=== PATIENT | female | born 1940 | race Caucasian/White ===

== ENCOUNTER → 2018-04-12 13:24 | Outpatient (CLI) | payer MEDICARE, OTHER, MEDICAID, SELFPAY ==
--- NOTE | 2018-04-12 13:29 | BI_ITS ---
MAMMOGRAPHY - BILATERAL DIAGNOSTIC REASON FOR EXAM: Female, 77 years old. Right breast lump. PERTINENT HISTORY: Personal history of breast cancer. Prior right lumpectomy with radiation and chemotherapy. Mother with breast cancer. TECHNIQUE: Digital bilateral breast neil (3D mammographic acquisition) in the CC and MLO projections. 2-D mediolateral oblique (MLO) and craniocaudad (CC) views of both breasts were obtained. CAD: Full Field Digital Mammography with Computer Added Detection was performed. COMPARISON: Comparison is made with prior outside examination dated June 13, 2016. FINDINGS: Breast Composition: The breasts are heterogeneously dense, which may obscure small masses. There are no dominant masses or suspicious calcifications. Stable bilateral vascular and microcalcifications. Postoperative scarring is seen in the upper lateral portion of the right breast in keeping with prior lumpectomy. No other significant abnormalities are identified. There has been no significant change since the prior study. BI/DIAG MAMM W/CAD, BILAT IMPRESSION: Stable bilateral diagnostic mammogram. With the patient's history of a palpable abnormality in the right breast, correlation with ultrasound is recommended ASSESSMENT CATEGORY: BIRADS Category 0: Incomplete. Need additional imaging evaluation. A letter regarding these results will be sent to the patient by the facility within 30 days. Approximately 10% of breast cancers are not detected by mammography. A normal mammogram should not delay biopsy of a clinically suspicious abnormality. Electronically Signed: Jluis Alas, at 15:33 EST , Service support ,
--- NOTE | 2018-04-12 13:29 | US_ITS ---
STUDY: ULTRASOUND BREAST - RIGHT REASON FOR EXAM: Female, 77 years old. Palpable lump in the right breast. Prior right lumpectomy. TECHNIQUE: Axial and longitudinal images of the RIGHT breast were performed with a high resolution ultrasound transducer. COMPARISON: Comparison is made with prior mammogram done earlier in today. FINDINGS: RIGHT Breast: There is a 5 mm x 7 mm x 3 mm hypoechoic nodular density. Tiny calcifications are seen within it. This lies just medial to the lumpectomy site. A biopsy is recommended for further evaluation. US/Breast Limited Unilateral IMPRESSION: Abnormality corresponds to a 5 mm x 7 mm x 3 mm hypoechoic slightly irregular nodule with tiny calcifications within it. This is medial to the lumpectomy site. A biopsy is recommended for further evaluation. ASSESSMENT CATEGORY: BIRADS Category 4: Suspicious - Biopsy Should Be Considered. A letter regarding these results will be sent to the patient by the facility within 30 days. Electronically Signed: Jluis Alas, at 15:35 EST , Service support ,
== END ==
PROVIDERS: Family Provider Family Medicine; PCP Family Medicine; Referring Provider Family Medicine; Visit Provider Family Medicine
DX: N63.10 Unspecified lump in the right breast, unspecified quadrant (principal); N63.20 Unspecified lump in the left breast, unspecified quadrant; Z85.3 Personal history of malignant neoplasm of breast
CPT/HCPCS: 76642; 77062; 77066; G0279

== ENCOUNTER → 2018-04-26 12:31 | Outpatient (CLI) | payer MEDICARE, OTHER, MEDICAID, SELFPAY ==
--- NOTE | 2018-04-26 09:00 | BRBX_PTH ---
PATIENT: ABIGAIL DE LA CRUZ LOC: [facility] U#:[id number] AGE/SX: 84/F ROOM: RE04/26/[address]: Dr. Eliel Cordova MD : 1940 BED: DIS: SPEC #: [id number] RECD: 04/26/18 12:24 STATUS: CLARENCE TONY #: [id number] CECILY: 04/26/18 09:[address]: Eliel Cordova DEPT: SURGICAL PATHOLOGY RECD BY: Uvaldo Myrick ENTERED: 04/26/18 13:33 SP TYPE: BREAST BX OTHR DR: Dr. Kt Michelle MD Tissues: Right breast, NOS Procedures: Surgery Specimen Level IV HEADER OPERATION: Excisional biopsy right breast PRE-OP DIAGNOSIS: Abnormal breast ultrasound, right TISSUE SUBMITTED: Right breast tissue MICROSCOPIC DIAGNOSIS Right breast tissue, excisional biopsy: Mature fatty and fibrovascular tissue. Skin with no pathologic change. See comment. AM:santa 04/30/18 COMMENT Glandular tissue is not represented in the biopsy. Clinical correlation is suggested. MICROSCOPIC DESCRIPTION Slides are reviewed. GROSS DESCRIPTION Received in fixative is one container labeled with the patient's name and designated right breast. The specimen consists of a piece of fibroadipose tissue measuring 3.5 x 3 x 0.5 cm. A piece of skin is noted at one edge measuring 1 x 0.6 cm. The specimen is inked, serially sectioned and reveals yellow adipose cut surfaces without area of hemorrhage, necrosis or cystic degeneration. The entire specimen is submitted in two cassettes. The sections will be submitted after overnight fixation. / SJ:santa 04/26/18 TC:5 CPT: 93798
[2018-04-26 09:41] VITALS: BMI 20.9
== END ==
PROVIDERS: Family Provider Family Medicine; PCP Family Medicine; Referring Provider Surgery; Visit Provider Surgery
DX: R92.8 Other abnormal and inconclusive findings on diagnostic imaging of breast (principal)
CPT/HCPCS: 88305

== ENCOUNTER → 2019-09-18 14:21 | Outpatient (CLI) | payer MEDICARE, MEDICAID, SELFPAY ==
[2018-04-26 09:41] VITALS: BMI 20.9
[2019-09-18 15:53] LABS: Protein, Urine (Random) 396.4 mg/dL (<11.9); Protein:Creat Ratio 6640 mg/g CRE (0-200)
== END ==
PROVIDERS: PCP Family Medicine; Referring Provider Internal Medicine Nephrology; Visit Provider Internal Medicine Nephrology
DX: E11.22 Type 2 diabetes mellitus with diabetic chronic kidney disease (principal)
CPT/HCPCS: 82570; 84156

== ENCOUNTER 2020-05-06 19:35 | Inpatient (IN) | payer MEDICARE, OTHER, MEDICAID, SELFPAY ==
[2018-04-26 09:41] VITALS: BMI 20.9
[2020-05-06] VITALS (8 sets, daily range): BP systolic 168–244; BP diastolic 66–99; PULSE 51–62; RESP 15–16; TEMP 36.1–36.3; O2SAT 94–97; BMI 22.8; BMI 21.0
--- NOTE | 2020-05-06 19:50 | EKG12_ITS ---
Test Reason : HIGH BP Blood Pressure : / mmHG Vent. Rate : 053 BPM Atrial Rate : 053 BPM P-R Int : 200 ms QRS Dur : 124 ms QT Int : 484 ms P-R-T Axes : 022 060 046 degrees QTc Int : 454 ms Sinus bradycardia Right bundle branch block Abnormal ECG Confirmed by MAHNAZ DARDEN, JOAN ([id number]), graphic editor MATILDA CISNEROS ([id number]) on 05/08/2020 12:47:07 PM Referred By: SUKHJINDER Confirmed By:JOAN JOYA MD
--- NOTE | 2020-05-06 19:50 | CT_ITS ---
EXAMINATION : Head CT w/out contrast HISTORY : Headache COMPARISON : None. TECHNIQUE : Multiple contiguous axial images were obtained from the skull base to the vertex without intravenous contrast. A radiation dose optimization technique was used for this scan. FINDINGS : There is no evidence for acute intracranial hemorrhage, mass effect, or midline shift. There is no extra-axial fluid collection. There are periventricular white matter changes consistent with chronic microvascular ischemic disease. There is sulcal widening and ventricular enlargement consistent with cerebral atrophy. There is normal vu-white differentiation, without CT evidence of acute ischemia or infarct. Old lacunar infarcts involving the left caudate, left lenticular nucleus. Vague 1.2 cm hypodense area in the right lenticular nucleus. The skull base and calvarium are unremarkable. The orbits are unremarkable. The paranasal sinuses are clear. The mastoid air cells are well-aerated. The soft tissues are unremarkable. CT/Brain/Head without Contrast IMPRESSION: Vague hypodense area in the right lenticular nucleus could represent an acute lacunar infarct. A brain MRI may be beneficial as clinically warranted. Old lacunar infarcts in the left caudate and lenticular nucleus. Chronic involutional and ischemic changes of the brain. Electronically Signed: Maxx Cantrell MD at 21:03 EDT Tel , Service support ,
[2020-05-06] MEDS: 0.9% Normal Saline 1,000 ML 1000 ML IV (19:59)
[2020-05-06] MEDS: Labetalol (Prefilled) 20 MG/4 ML IV (20:00)
[2020-05-06 20:02] LABS: Absolute Lymphocyte Count 1.85 X10^3/uL (0.83-4.51); Absolute Neutrophil Count 5.4 X10^3/uL (2.0-7.7); Basophil# 0.06 X10^3/uL; Basophil% 0.7 % (0-1); Eosinophil# 0.14 X10^3/uL; Eosinophils% 1.7 % (0-5); Hematocrit 40.6 % (37-47); Hemoglobin 13.6 g/dL (12.0-15.0); Lymphocyte # 1.85 X10^3/ul (4.0); Lymphocyte % 22.3 % (19-41); Mean Corp Hgb Conc 33.5 g/dL (32-36); Mean Corpuscular Hgb 31.6 pg (27.0-32.0); Mean Corpuscular Volume 94.4 fL (81-99); Mean Platelet Vol. 10.7 fl (6.2-12.0); Monocyte# 0.81 X10^3/uL; Monocyte% 9.7 % (0-10); NRBC Flagged by Analyzer 0 % (0-5); Neutrophil # 5.43 X10^3/uL (2.7-7.7); Neutrophil % 65.4 % (47-70); Platelet Count 274 K/mm3 (150-450); RBC Distribution Width CV 12.9 % (11.6-14.6); White Blood Count 8.3 K/mm3 (4.4-11.0)
--- NOTE | 2020-05-06 20:11 | ED.VISSUMM ---
- ER Visit Summary Date of Service: 05/06/20 Chief Complaint: Hypertension History of Present Illness: The patient is a 79 F who presents with hypertension that has been getting worse today. Patient fell earlier today after an episode of dizziness. Patient states she felt like there was a spinning sensation and she fell. Patient states the dizziness lasted a few minutes after she fell and then resolved. Patient denies any dizziness at the present time. Patient's blood pressure continued to increase throughout the day since the fall. Patient denies any chest pain. Patient does admit to some nausea and vomiting. Patient denies any headaches. Patient admits to subjective chills. Physical Examination: Vital signs are stable except for an elevated blood pressure of 244/85 and a slight bradycardia 57. Patient is afebrile. Patient is in no acute distress. Pupils are equal, round, and reactive to light bilaterally. Extraocular muscles are intact. Neck is supple. Trachea is midline. There is no JVD. Heart was regular rate and rhythm. Lungs are clear and equal bilaterally. Abdomen is soft. Bowel sounds are normal. There is no tenderness. Cranial nerves II through XII are intact. Strength is 5/5 bilateral in the upper and lower extremities. There are no sensory deficits. NIH score is 0. Extremities are intact. There is no calf tenderness or edema. There is full range of motion. Test Results: EKG was obtained. On my interpretation, it showed a sinus bradycardia with a rate of 53. MD interval, QRS interval, and QTc intervals were all normal. [place] was normal. There are no acute ST or T wave changes. There is a right bundle branch block pattern noted. There are no prior EKGs available for comparison. CBC and comprehensive metabolic profile were obtained and were within normal limits save for slightly elevated BUN of 33 and creatinine of 1.7. Patient does have a history of acute kidney injury. There are no prior values to compare with. Urinalysis does not show any evidence of urinary tract infection. CT scan of the brain was obtained. There is no acute bleed. There is a vague hypodense area in the right lenticular nucleus that could represent an acute lacunar infarct. MRI may be beneficial if clinically warranted. This was interpreted by the radiologist and reviewed by myself. Emergency Department Course and Treatment: Patient was given a dose of labetalol here. Patient's blood pressure improved to 207/107. Cardene drip was ordered. Patient's blood pressure improved to 174/85 prior to this being started. This was held. Case was discussed with the hospitalist. He will admit the patient to PCU. Patient understood and was agreeable with the plan. All questions were answered. Disposition: Admit to PCU Impression: 1. Hypertension 2. Lacunar infarct This note was generated with Video[employer] dictation software. It may contain incorrect words, spelling, and punctuation that were not noted in review of the chart prior to signing ED Disposition - Plan for ED Patient: Disposition: Acute Care Hospital [facility] Diagnosis: Hypertension, Lacunar infarct, acute Referrals: Kt Michelle MD [Primary Care Provider] -
[2020-05-06 20:25] LABS: ALB/GLOB Ratio 0.8 RATIO (0.9-2.4); AST(SGOT) 23 U/L (15-37); Alanine Aminotransfer ALT/SGPT 24 U/L (13-56); Albumin, Serum 3.2 g/dL (3.2-5.0); Alkaline Phosphatase 104 U/L (45-117); Anion Gap 5 (5-15); BUN 33 mg/dL (7-18); BUN/Creat Ratio 19.4 RATIO (10-20); Chloride 111 mmol/L (98-107); EST Glomerular Filtration Rate 31 mL/min (>60); Est Glom Filt Rate - Afr Amer 37 mL/min (>60); Estimated Creatinine Clearance 22.92 ml/min; Globulin 3.9 g/dL (2.2-4.2); Glucose 118 mg/dL (74-106); Potassium 3.9 mmol/L (3.5-5.1); Protein, Total 7.1 g/dL (6.4-8.2); Sodium Level 143 mmol/L (136-145)
[2020-05-06 21:01] LABS: Mucous, Urine 0 SEEN /hpf (<or=2+); Red Blood Cells-Urine 0 SEEN /hpf (0-5); Squamous Epithelial Cells - UA 0 SEEN /hpf (5-10)
[2020-05-06 21:05] LABS: Color, Urine Yellow (Yellow); Glucose, Dipstick Normal (Normal); Ketone-Dipstick Negative (Negative); Leukocyte Esterase-Dipstick Negative /ul (Negative); Nitrite-Dipstick Negative (Negative); Occult Blood-Urine 25 /ul (Negative); Protein-Dipstick 500 mg/dl (Negative); Urine Bilirubin Dipstick Negative (Negative); Urine Clarity Sl. Cloudy (Clear); Urine Urobilinogen Normal (Normal)
[2020-05-06 21:13] LABS: Amorphous Sediment 3+; Bacteria 2+ /hpf (None Seen); White Blood Cells 0-5 SEEN /hpf (0-5)
--- NOTE | 2020-05-06 22:30 | HP.PCM_ITS ---
<Katy Rojas - Last Filed: 05/06/20 22:30> Problem List (1) Lacunar infarct, acute Status: Acute (2) Fall Status: Acute Qualifiers: Encounter type: initial encounter Qualified Code(s): W19.XXXA - Unspecified fall, initial encounter (3) Vitamin D deficiency Status: Chronic (4) Diabetes mellitus type 2 in nonobese Status: Chronic (5) Depression Status: Chronic (6) Hypertension Status: Chronic (7) Dementia Status: Chronic History of Present Illness Date of Admission: 05/06/20 Chief Complaint: Fall The patient is a 79 year old F who presents from a prison following a fall. Patient is unable to remember events leading up to fall. Patient states she does think that she hit her head as she says it hurts. Upon presentation to the ER patient blood pressure 212/106. Patient was placed on Cardene drip in ER, current BP 174/85. Patient is alert and oriented, discussed plan of care with patient and she verbalized understanding. Denies fever, chills, chest pain, shortness of breath, nausea, vomiting. Patient reports a medical history of hypertension and diabetes. Patient denies previous stroke or heart attack, never patient states that she has had abnormal heart rhythms in the past but she is unsure what they were. Past Medical History Past Medical History (Chronic Problems): Chronic Problems (Last Reviewed 05/06/20 @ 22:43 by Katy Rojas, SETH-C) Hypertension (Chronic) Vitamin D deficiency (Chronic) Diabetes mellitus type 2 in nonobese (Chronic) Depression (Chronic) Dementia (Chronic) Medical History: Medical History (Last Reviewed 05/06/20 @ 22:43 by Katy Rojas NP-C) Breast mass, right (Acute) N63.10 History of falling (Acute) Z91.81 Altered mental status, unspecified (Acute) R41.82 Disorientation, unspecified (Acute) R41.0 Acute cystitis with hematuria (Acute) N30.01 Acute kidney failure (Acute) N17.9 Major depressive disorder (Acute) F32.9 Protein calorie malnutrition (Acute) E46 Dementia (Chronic) F03.90 Hx of breast cancer (Acute) Z85.3 Right breast Diabetes type 2, controlled E11.9 Weakness R53.1 Hypertension I10 Allergies loratadine [From Claritin] Allergy (Unknown, Verified 05/01/18 09:27) Unknown Home Medications: Ambulatory Orders Medication Instructions Recorded acetaminophen 325 mg capsule 325 mg PO Q6H PRN 04/17/18 acetaminophen 650 mg rectal 650 mg RC Q6H PRN 04/17/18 suppository aluminum-mag hydroxide-simethicone 10 ml PO Q6H PRN 04/17/18 200 mg-200 mg-20 mg/5 mL oral susp amlodipine 10 mg tablet 10 mg PO DAILY 04/17/18 bisacodyl 10 mg rectal suppository 10 mg RC DAILY PRN 04/17/18 dextrose 40 % oral gel 15 g PO Q15M PRN 04/17/18 donepezil 10 mg tablet 10 mg PO DAILY 04/17/18 guaifenesin 100 mg/5 mL oral liquid 200 mg PO Q4H PRN 04/17/18 ondansetron 4 mg disintegrating 4 mg PO BID-TID PRN 04/17/18 tablet venlafaxine 37.5 mg 37.5 mg PO DAILY 04/17/18 capsule,extended release 24 hr Carvedilol 6.25 mg PO BID 05/06/20 Cholecalciferol (Vitamin D3) 2 tablet PO DAILY 05/06/20 [Vitamin D3] Ferrous Sulfate 325 mg PO DAILY 05/06/20 Melatonin 5 mg PO QHS 05/06/20 Sitagliptin Phosphate [Januvia] 25 mg PO DAILY 05/06/20 Surgical History: Surgical History (Last Reviewed 05/06/20 @ 22:43 by Katy Rojas NP-C) History of lumpectomy of right breast (Acute) Z98.890 History of right breast biopsy Onset Date: ~04/2018 Z98.890 Surgical History: noncontributory Psychiatric History: Depression Lives: Custodial Smoking Status: Never smoker Alcohol: None Drugs: None - *Family History Maternal Family History: Family History (Last Reviewed 04/26/18 @ 09:11 by Ngozi Gillette) Mother Breast cancer History Items: Diabetes Paternal Family History: Family History (Last Reviewed 04/26/18 @ 09:11 by Ngozi Gillette) Mother Breast cancer History Items: Hypertension Review of Systems Constitutional: Denies: Chills, Fever, Weight Change HEENT: Denies: Head Aches, Sinus Congestion, Sinus Drainage Cardiovascular: Denies: Chest Pain, Palpitations Respiratory: Denies: Cough, Shortness of breath at rest, Sputum production Gastrointestinal: Denies: Abdominal Pain, Nausea, Vomiting Genitourinary: Denies: Dysuria Musculoskeletal: Denies: Joint Pain, Joint Tenderness Skin: Denies: Rash, Wounds Neurological: Reports: Headaches - Following fall. Denies: Focal weakness, N umbness, Tingling Psychiatric: Denies: Anxiety, Depression, Homicidal Ideations, Suicidal Ideations Hematologic/ Lymphatic: Denies: Easy Bruising, Easy Bleeding VTE Information - Inpt Only VTE Present on Admission: No VTE Mechan Device Prophylaxis: SCD's, None VTE Pharm Prophylaxis ordered?: No Patient Problems: Active and Suspected Problems (Last Reviewed 05/06/20 @ 22:43 by MING Pompa) Lacunar infarct, acute (Acute) Fall (Acute) - Physical Exam Vitals/I&O's: Vital Signs Temp Pulse Resp BP Pulse Ox 97.3 F L 54 L 16 214/82 H 94 05/06/20 22:26 05/06/20 22:26 05/06/20 22:26 05/06/20 22:26 05/06/20 22:26 Oxygen Delivery Method Room Air Weight: 128 lb 15.527 oz Body Mass Index (BMI) 22.8 Intake and Output for Last 24 Hours 05/04/20 05/05/20 05/06/20 23:59 23:59 23:59 Intake Total 1000 / 1000 Balance 1000 / 1000 General: Alert, Oriented x3, Cooperative HEENT: Atraumatic, PERRLA, EOMI, Normocephalic Neck: Supple, No JVD, Negative Carotid Bruits Lungs: Clear to auscultation, Normal air movement Cardiovascular: Regular Rhythm, Normal S1, Normal S2, No murmurs, Bradycardic Abdomen: Bowel Sounds Present, Soft, Non Tender Extremities: No edema, Capillary Refill Less than 3 Seconds Skin: No rashes, No breakdown Musculoskeletal: No Tenderness to Palpation of Joints or Extremities Neurological: Cranial nerves II-XII grossly intact Psych/Mental Status: Normal Affect, Appropriate Laboratory Results 05/06/20 19:08: WBC 8.3, RBC 4.30, Hgb 13.6, Hct 40.6, MCV 94.4, MCH 31.6, MCHC 33.5, RDW Std Deviation 44.0 H, RDW Coeff of Luis Miguel 12.9, Plt Count 274, MPV 10.7, Immature Gran % (Auto) 0.200, Neut % (Auto) 65.4, Lymph % (Auto) 22.3, [place] % (Auto) 9.7, Eos % (Auto) 1.7, Baso % (Auto) 0.7, Absolute Neuts (auto) 5.4, Absolute Lymphs (auto) 1.85, Nucleated RBC % 0 05/06/20 19:08: Sodium 143, Potassium 3.9, Chloride 111 H, Carbon Dioxide 27.0, Anion Gap 5, BUN 33 H, Creatinine 1.70 H, Estim Creat Clear Calc 22.92, Est GFR (MDRD) Af Amer 37 L, Est GFR (MDRD) Non-Af 31 L, BUN/Creatinine Ratio 19.4, Glucose 118 H, Calcium 9.0, Total Bilirubin 0.40, AST 23, ALT 24, Alkaline Phosphatase 104, Troponin I < 0.015, Total Protein 7.1, Albumin 3.2, Globulin 3.9, Albumin/Globulin Ratio 0.8 L 05/06/20 20:50: Urine Color Yellow, Urine Clarity Sl. Cloudy, Urine pH 5.0, Ur Specific [place] 1.020, Urine Protein 500 H, Urine Glucose (UA) Normal, Urine Ketones Negative, Urine Occult Blood 25 H, Urine Nitrite Negative, Urine Bilirubin Negative, Urine Urobilinogen Normal, Ur Leukocyte Esterase Negative, Urine RBC 0 SEEN, Urine WBC 0-5 SEEN, Ur Squamous Epith Cells 0 SEEN, Amorphous Sediment 3+, Urine Bacteria 2+, Urine Mucus 0 SEEN Current Medications Nicardipine HCl 25 mg/ Sodium (Chloride) 250 mls @ 50 mls/hr CONT INF .Q5H YEE; Protocol Last Admin: 05/06/20 22:22 Dose: 5 mg/hr, 50 mls/hr Documented by: Assessment/Plan All Active Problems (Last Reviewed 05/06/20 @ 22:43 by Katy Rojas, DATA PROCESSING EQUIPMENT REPAIRER-C) Lacunar infarct, acute (Acute) Fall (Acute) Breast mass, right (Acute) History of lumpectomy of right breast (Acute) History of falling (Acute) Altered mental status, unspecified (Acute) Disorientation, unspecified (Acute) Acute cystitis with hematuria (Acute) Acute kidney failure (Acute) Major depressive disorder (Acute) Protein calorie malnutrition (Acute) Hx of breast cancer (Acute) 1. Acute lacunar infarct, suspected -Brain CT IMPRESSION:Vague hypodense area in the right lenticular nucleus could represent an acute lacunar infarct. A brain MRI may be beneficial as clinically warranted. -Will proceed with stroke work-up, MRI brain and head/neck MRA ordered. -Continue NIH. -Will allow permissive hypertension, IV hydralazine and labetalol ordered with blood pressure parameters. -Aspirin and atorvastatin initiated. -Continuous cardiac monitoring. 2. Fall -Brain CT negative for bleed. -Continue to monitor for mental status changes. 3. Hypertension -Will allow permissive hypertension for first 24 hours per stroke protocol. -As needed hydralazine and labetalol ordered. -Continue home medications including carvedilol and amlodipine. 4. Dementia -Continue donepezil. 5. Depression -Continue venlafaxine. 6. Diabetes mellitus type 2 -Hold Januvia while inpatient. -AC at bedtime blood sugar checks with sliding scale insulin ordered 7. Vitamin D deficiency -Continue vitamin D3 -Vitamin D level ordered. DVT prophylaxis-SCDs This patient was seen by MING Pompa under the supervision of Dr. Pozo. <David Pozo - Last Filed: 05/06/20 23:30> History of Present Illness The patient is a 79 year old F [] Past Medical History Medical History: Medical History (Last Reviewed 05/06/20 @ 22:43 by MING Pompa) Breast mass, right (Acute) N63.10 History of falling (Acute) Z91.81 Altered mental status, unspecified (Acute) R41.82 Disorientation, unspecified (Acute) R41.0 Acute cystitis with hematuria (Acute) N30.01 Acute kidney failure (Acute) N17.9 Major depressive disorder (Acute) F32.9 Protein calorie malnutrition (Acute) E46 Dementia (Chronic) F03.90 Hx of breast cancer (Acute) Z85.3 Right breast Diabetes type 2, controlled E11.9 Weakness R53.1 Hypertension I10 Allergies loratadine [From Claritin] Allergy (Unknown, Verified 05/01/18 09:27) Unknown Surgical History: Surgical History (Last Reviewed 05/06/20 @ 22:43 by Katy Rojas NP-C) History of lumpectomy of right breast (Acute) Z98.890 History of right breast biopsy Onset Date: ~04/2018 Z98.890 - *Family History Maternal Family History: Family History (Last Reviewed 04/26/18 @ 09:11 by Ngozi Gillette) Mother Breast cancer Paternal Family History: Family History (Last Reviewed 04/26/18 @ 09:11 by Ngozi Gillette) Mother Breast cancer - Physical Exam Vitals/I&O's: Vital Signs Temp Pulse Resp BP Pulse Ox 97.3 F L 62 16 168/66 H 94 05/06/20 22:26 05/06/20 22:38 05/06/20 22:26 05/06/20 22:42 05/06/20 22:26 Oxygen Delivery Method Room Air Weight: 58.5 kg Body Mass Index (BMI) 22.8 Intake and Output for Last 24 Hours 05/04/20 05/05/20 05/06/20 23:59 23:59 23:59 Intake Total 1013.33 / 1013.33 Balance 1013.33 / 1013.33 Laboratory Results 05/06/20 19:08: WBC 8.3, RBC 4.30, Hgb 13.6, Hct 40.6, MCV 94.4, MCH 31.6, MCHC 33.5, RDW Std Deviation 44.0 H, RDW Coeff of [place] 12.9, Plt Count 274, MPV 10.7, Immature Gran % (Auto) 0.200, Neut % (Auto) 65.4, Lymph % (Auto) 22.3, [place] % (Auto) 9.7, Eos % (Auto) 1.7, Baso % (Auto) 0.7, Absolute Neuts (auto) 5.4, Absolute Lymphs (auto) 1.85, Nucleated RBC % 0 05/06/20 19:08: Sodium 143, Potassium 3.9, Chloride 111 H, Carbon Dioxide 27.0, Anion Gap 5, BUN 33 H, Creatinine 1.70 H, Estim Creat Clear Calc 22.92, Est GFR (MDRD) Af Amer 37 L, Est GFR (MDRD) Non-Af 31 L, BUN/Creatinine Ratio 19.4, Glucose 118 H, Calcium 9.0, Total Bilirubin 0.40, AST 23, ALT 24, Alkaline Phosphatase 104, Troponin I < 0.015, Total Protein 7.1, Albumin 3.2, Globulin 3. 9, Albumin/Globulin Ratio 0.8 L 05/06/20 20:50: Urine Color Yellow, Urine Clarity Sl. Cloudy, Urine pH 5.0, Ur Specific [place] 1.020, Urine Protein 500 H, Urine Glucose (UA) Normal, Urine Ketones Negative, Urine Occult Blood 25 H, Urine Nitrite Negative, Urine Bilirubin Negative, Urine Urobilinogen Normal, Ur Leukocyte Esterase Negative, Urine RBC 0 SEEN, Urine WBC 0-5 SEEN, Ur Squamous Epith Cells 0 SEEN, Amorphous Sediment 3+, Urine Bacteria 2+, Urine Mucus 0 SEEN Current Medications Acetaminophen (Acetaminophen 325 Mg Tablet) 650 mg PO Q6H PRN PRN PRN Reason: Pain Score 1-10/Temp > 100.7 F Amlodipine Besylate (Amlodipine 10 Mg Tablet) 10 mg PO DAILY [facility] Aspirin (Aspirin 81 Mg Tab.Chew) 81 mg PO DAILY@0800 [facility] Atorvastatin Calcium (Atorvastatin Calcium 40 Mg Tablet) 40 mg PO QHS [facility] Carvedilol (Carvedilol 6.25 Mg Tablet) 6.25 mg PO BID [facility] Donepezil HCl (Donepezil Hcl 10 Mg Tablet) 10 mg PO DAILY [facility] Ferrous Sulfate ([facility]errous Sulfate 325 Mg Tablet) [facility] Hydralazine HCl (Hydralazine 20 Mg/Ml Vial) 5 mg IV Q30M PRN PRN Reason: to maintain BP goals Insulin Human Lispro (Insulin Lispro 100 Unit/Ml Insuln.Pen) 0 unit SC [facility]; Protocol Labetalol HCl (Labetalol (Prefilled) 20 Mg/4 Ml) 10 - 20 mg IV Q10M PRN PRN PRN Reason: to Maintain BP Goals Melatonin (Melatonin 3 Mg Tablet) 3 mg PO QHS PRN PRN PRN Reason: INSOMNIA Nitroglycerin (Nitroglycerin (Inpatient Use) 0.4 Mg Tab.Subl) 0.4 mg SL Q5M PRN PRN Reason: CARDIAC/CHEST PAIN Ondansetron HCl (Ondansetron 4 Mg/2 Ml Vial) 4 mg IV Q8H PRN PRN PRN Reason: NAUSEA/VOMITING Venlafaxine HCl (Venlafaxine Xr 37.5 Mg Capsule) 37.5 mg PO DAILY YEE Assessment/Plan Patient was seen and examined. I agree with assessment and plan by Katy Driver NP-C Patient lives in a prison. She fell. She does not remember why she fell. Patient alert and oriented x3. Has an S1-S2 present lungs clear to auscultate Abdomen soft nontender bowel sounds present Extremities no edema Strength in all extremities 5 out of 5. No dysmetria. Cranial nerves II to XII intact Hypertensive emergency. Will allow permissive hypertension per stroke protocol Trend blood pressures. Acute lacunar infarct Stroke work-up with MRI and echocardiogram. Asymptomatic bacteriuria Review of emergency department labs showed abnormal urinalysis. Patient denies any urinary symptoms. No treatment at this time.
--- NOTE | 2020-05-06 23:30 | ECHOD_ITS ---
Reason For Study: TIA/CVA Procedure This was a 2D Doppler, Color Flow transthoracic echocardiogram. The exam was of adequate technical quality. Exam performed portable in patient room. Left Ventricle Normal LV size. Moderate concentric left ventricular hypertrophy. Left ventricular systolic function is normal. The estimated ejection fraction is 65 %. No evidence for diastolic dysfunction. No regional wall motion abnormalities noted. Right Ventricle Normal RV size. Normal systolic function. Atria Normal left atrium. Normal right atrium. No doppler evidence for ASD. Bubble contrast study negative for right to left interatrial shunt. Mitral Valve There is no mitral annular calcification. Mild diffuse mitral valve thickening. Moderate focal mitral valve calcification of the anterior leaflet. The mitral papillary muscle appears thickened and/or calcified. Trivial mitral valve insufficiency. Tricuspid Valve Normal tricuspid valve. Trivial tricuspid valve insufficiency. Unable to estimate RV systolic pressure due to insufficient tricuspid regurgitant envelope. Aortic Valve Trisinus/trileaflet aortic valve. Mild focal aortic valve calcification. Trivial aortic valve insufficiency. Pulmonic Valve The pulmonic valve is not well visualized. Trivial pulmonic valve insufficiency. Great Vessels Normal sized aortic root. Calcified aortic root. Pericardium/Pleural No pericardial effusion. Epicardial fat. Medication Performed a rapid injection of agitated mix of 9 cc saline and 1cc air to assess for atrial septal defect. MMode/2D Measurements & Calculations LVIDd: 2.9 cm IVSd: 1.4 cm Ao root diam: 3.0 cm LVIDs: 1.6 cm LVPWd: 1.4 cm RVDd: 2.4 cm FS: 44.4 % LAV(MOD-bp): 24.6 ml LA A4 area: 11.4 cm2 LA dimension(2D): 2.7 cm LAV(MOD-bp) Indexed: 15.7 ml/m2 LAV(MOD-sp2): 19.9 ml LAV(MOD-sp4): 27.8 ml RA A4 area: 8.2 cm2 Doppler Measurements & Calculations MV E max michael: 37.4 cm/sec Lat Peak E' Michael: 7.7 cm/sec Med Peak E' Michael: 5.7 cm/sec MV A max michael: 87.2 cm/sec E/E' lat: 4.9 E/E' med: 6.6 MV E/A: 0.43 Ao V2 max: 106.7 cm/sec LV V1 max: 79.2 cm/sec PA V2 max: 126.0 cm/sec Ao max P.6 mmHg LV V1 max P.5 mmHg ECHO/Echo Complete Interpretation Summary Left ventricular systolic function is normal. The estimated ejection fraction is 65 %. Moderate concentric left ventricular hypertrophy. Mild diffuse mitral valve thickening. Moderate focal mitral valve calcification of the anterior leaflet. The mitral papillary muscle appears thickened and/or calcified. Trivial mitral valve insufficiency. Trivial tricuspid valve insufficiency. Mild focal aortic valve calcification. Trivial pulmonic valve insufficiency. Calcified aortic root. Epicardial fat. Unable to estimate RV systolic pressure due to insufficient tricuspid regurgita nt envelope. No evidence for diastolic dysfunction. Bubble contrast study negative for right to left interatrial shunt. Ordering Physician: David Pozo Referring Physician: Kt Michelle Performed By: Lynette Nichole RDCS
[2020-05-07] VITALS (16 sets, daily range): BP systolic 159–207; BP diastolic 51–99; PULSE 49–69; RESP 16–19; TEMP 36.2–36.8; O2SAT 94–100; BMI 21.0
[2020-05-07 05:50] LABS: ALB/GLOB Ratio 0.8 RATIO (0.9-2.4); AST(SGOT) 23 U/L (15-37); Alanine Aminotransfer ALT/SGPT 19 U/L (13-56); Albumin, Serum 2.6 g/dL (3.2-5.0); Alkaline Phosphatase 84 U/L (45-117); Anion Gap 6 (5-15); BUN 30 mg/dL (7-18); Calcium,Total 8.4 mg/dL (8.5-10.1); Chloride 113 mmol/L (98-107); Cholesterol 286 mg/dL (200); EST Glomerular Filtration Rate 36 mL/min (>60); Est Glom Filt Rate - Afr Amer 43 mL/min (>60); Estimated Creatinine Clearance 27.12 ml/min; Globulin 3.2 g/dL (2.2-4.2); Glucose 85 mg/dL (74-106); High Density Lipoprotein 41 mg/dL; Potassium 3.5 mmol/L (3.5-5.1); Protein, Total 5.8 g/dL (6.4-8.2); Sodium Level 143 mmol/L (136-145); Triglycerides 199 mg/dL; Very Low Density Lipoprotein 40 mg/dL (5-40)
--- NOTE | 2020-05-07 06:28 | NURSING ---
Unable to completely perform 0400 NIH assessment d/t pt wanting to sleep and refusing to cooperative with staff. JULISSA Fuller.
[2020-05-07 07:01] LABS: Bedside Glucose 86 mg/dL (70-110)
--- NOTE | 2020-05-07 08:18 | NURSING ---
Into room to preform NIH and obtain VS. Pt resting in bed on left side with blankets pulled above head. ECHO at bedside setting up. This RN gently spoke to pt to inform her of POC. PT then started screaming at staff that she wasn't doing anything not this early. Pt continued to scream at staff. This RN was able to calm pt and obtain VS. Pt refused to preform NIH and allow assessment to be done. RN left room with pt resting in bed, bed alarm on and call light in reach.
[2020-05-07] MEDS: Venlafaxine XR 37.5 MG Capsule PO (10:24)
[2020-05-07] MEDS: Donepezil HCl 10 MG Tablet PO (10:24)
[2020-05-07] MEDS: Aspirin 81 MG TAB.CHEW PO (10:24)
[2020-05-07] MEDS: Ferrous Sulfate 325 MG Tablet PO (10:24)
[2020-05-07] MEDS: Carvedilol 6.25 MG Tablet PO (10:37)
[2020-05-07] MEDS: amLODIPine 10 MG Tablet PO (10:37)
--- NOTE | 2020-05-07 10:39 | CASEMGMT ---
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 Clinical updates faxed. SW will continue to follow for discharge planning. KEIRA Morales
[2020-05-07 11:10] LABS: Bedside Glucose 147 mg/dL (70-110)
--- NOTE | 2020-05-07 11:46 | PN_ITS ---
Patient Problems: Active and Suspected Problems (Last Reviewed 05/06/20 @ 22:43 by Katy Rojas, [employer]-C) Lacunar infarct, acute (Acute) Fall (Acute) Subjective: change in mental status Vitals/I&O's: Vital Signs Temp Pulse Resp BP Pulse Ox 36.8 C 67 19 H 207/85 H 96 05/07/20 08:15 05/07/20 10:27 05/07/20 08:15 05/07/20 10:05/07/20 08:15 Oxygen Delivery Method Room Air Weight: 55.6 kg Body Mass Index (BMI) 21.0 Intake and Output for Last 24 Hours 05/05/20 05/06/20 05/07/20 23:59 23:59 23:59 Intake Total 1013.33 / 1043.33 Output Total 0 / 0 Balance 1013.33 / 1043.33 General: No apparent distress, Confused, - - diffuse allopecia HEENT: Atraumatic, Normocephalic Oral: Moist Mucosa, No Gingival or Mucosal Lesions/ Ulcerations Neck: No Nodes, Thyroid Normal Size and Texture Lungs: Clear to auscultation, Normal air movement, No rhonchi, No wheeze Cardiovascular: Regular rate, Regular Rhythm, Normal S1, Normal S2 Abdomen: Bowel Sounds Present, Soft, Non Tender, Non-Distended Neurological: - - refuses to follow commands. moves all extremities spontaneusly. Laboratory Results 05/06/20 19:08: WBC 8.3, RBC 4.30, Hgb 13.6, Hct 40.6, MCV 94.4, MCH 31.6, MCHC 33.5, RDW Std Deviation 44.0 H, RDW Coeff of Luis Miguel 12.9, Plt Count 274, MPV 10.7, Immature Gran % (Auto) 0.200, Neut % (Auto) 65.4, Lymph % (Auto) 22.3, [place] % (Auto) 9.7, Eos % (Auto) 1.7, Baso % (Auto) 0.7, Absolute Neuts (auto) 5.4, Absolute Lymphs (auto) 1.85, Nucleated RBC % 0 05/06/20 19:08: Sodium 143, Potassium 3.9, Chloride 111 H, Carbon Dioxide 27.0, Anion Gap 5, BUN 33 H, Creatinine 1.70 H, Estim Creat Clear Calc 22.92, Est GFR (MDRD) Af Amer 37 L, Est GFR (MDRD) Non-Af 31 L, BUN/Creatinine Ratio 19.4, Glucose 118 H, Calcium 9.0, Total Bilirubin 0.40, AST 23, ALT 24, Alkaline Phosphatase 104, Troponin I < 0.015, Total Protein 7.1, Albumin 3.2, Globulin 3.9, Albumin/Globulin Ratio 0.8 L 05/06/20 20:50: Urine Color Yellow, Urine Clarity Sl. Cloudy, Urine pH 5.0, Ur Specific [place] 1.020, Urine Protein 500 H, Urine Glucose (UA) Normal, Urine Ketones Negative, Urine Occult Blood 25 H, Urine Nitrite Negative, Urine Bilirubin Negative, Urine Urobilinogen Normal, Ur Leukocyte Esterase Negative, Urine RBC 0 SEEN, Urine WBC 0-5 SEEN, Ur Squamous Epith Cells 0 SEEN, Amorphous Sediment 3+, Urine Bacteria 2+, Urine Mucus 0 SEEN 05/06/20 23:33: Vit D 1,25-Dihydroxy Pending 05/06/20 23:33: Troponin I < 0.015 05/07/20 05:02: Sodium 143, Potassium 3.5, Chloride 113 H, Carbon Dioxide 24.0, Anion Gap 6, BUN 30 H, Creatinine 1.50 H, Estim Creat Clear Calc 27.12, Est GFR (MDRD) Af Amer 43 L, Est GFR (MDRD) Non-Af 36 L, BUN/Creatinine Ratio 20.0, Glucose 85, Calcium 8.4 L, Total Bilirubin 0.40, AST 23, ALT 19, Alkaline Phosphatase 84, Total Protein 5.8 L, Albumin 2.6 L, Globulin 3.2, Albumin/Globulin Ratio 0.8 L, Triglycerides 199, Cholesterol 286 H, LDL Cholesterol 205 H, VLDL Cholesterol 40, HDL Cholesterol 41 05/07/20 06:55: POC Glucose 86 05/07/20 11:04: POC Glucose 147 H Current Medications Acetaminophen (Acetaminophen 325 Mg Tablet) 650 mg PO Q6H PRN PRN PRN Reason: Pain Score 1-10/Temp > 100.7 F Amlodipine Besylate (Amlodipine 10 Mg Tablet) 10 mg PO DAILY YEE Last Admin: 05/07/20 10:37 Dose: 10 mg Documented by: Aspirin (Aspirin 81 Mg Tab.Chew) 81 mg PO DAILY@0800 [facility] Last Admin: 05/07/20 10:24 Dose: 81 mg Documented by: Atorvastatin Calcium (Atorvastatin Calcium 40 Mg Tablet) 40 mg PO QHS [facility] Carvedilol (Carvedilol 6.25 Mg Tablet) 6.25 mg PO BID [facility] Last Admin: 05/07/20 10:37 Dose: 6.25 mg Documented by: Donepezil HCl (Donepezil Hcl 10 Mg Tablet) 10 mg PO DAILY [facility] Last Admin: 05/07/20 10:24 Dose: 10 mg Documented by: Ferrous Sulfate (Ferrous Sulfate 325 Mg Tablet) 325 mg PO DAILYCM [facility] Last Admin: 05/07/20 10:24 Dose: 325 mg Documented by: Hydralazine HCl (Hydralazine 20 Mg/Ml Vial) 5 mg IV Q30M PRN PRN Reason: to maintain BP goals Insulin Human Lispro (Insulin Lispro 100 Unit/Ml Insuln.Pen) 0 unit SC [facility]; Protocol Last Admin: 05/07/20 11:29 Dose: Not Given Documented by: Labetalol HCl (Labetalol (Prefilled) 20 Mg/4 Ml) 10 - 20 mg IV Q10M PRN PRN PRN Reason: to Maintain BP Goals Melatonin (Melatonin 3 Mg Tablet) 3 mg PO QHS PRN PRN PRN Reason: INSOMNIA Nitroglycerin (Nitroglycerin (Inpatient Use) 0.4 Mg Tab.Subl) 0.4 mg SL Q5M PRN PRN Reason: CARDIAC/CHEST PAIN Ondansetron HCl (Ondansetron 4 Mg/2 Ml Vial) 4 mg IV Q8H PRN PRN PRN Reason: NAUSEA/VOMITING Sodium Chloride (0.9% Saline Lock 10 Ml Syringe) 10 - 40 ml IV UD PRN PRN Reason: SALINE FLUSH Venlafaxine HCl (Venlafaxine Xr 37.5 Mg Capsule) 37.5 mg PO DAILY [facility] Last Admin: 05/07/20 10:24 Dose: 37.5 mg Documented by: STROKE Vital Signs/Narrative: Vital Signs Temp Pulse Resp BP BP Pulse Ox 05/07/20 10:27 67 207/85 H 05/07/20 08:15 36.8 C 69 19 H 159/69 H 96 Medical Necessity - Tobacco Use Smoking Status: Never smoker Assessment/Plan All Active Problems (Last Reviewed 05/06/20 @ 22:43 by Katy Rojas, [employer]-C) Lacunar infarct, acute (Acute) Fall (Acute) Breast mass, right (Acute) History of lumpectomy of right breast (Acute) History of falling (Acute) Altered mental status, unspecified (Acute) Disorientation, unspecified (Acute) Acute cystitis with hematuria (Acute) Acute kidney failure (Acute) Major depressive disorder (Acute) Protein calorie malnutrition (Acute) Hx of breast cancer (Acute) 1. change in mental status baseline dementia ?acute CVA v hypertensive encephalopathy v baseline 2. fall PT OT eval and treat 3. abnormal CT MRI pending on ASA and atorvastatin 4. HTN emergency BP 232/99, improved, now 159/69 on amlodipine 10, carveilol 6.25 5. Dementia complicates care on donepezil 6. VTE prophylaxis: SCDs OBSV E&M: 24580 Subsequent observation care L3
[2020-05-07] MEDS: Ondansetron 4 MG/2 ML Vial IV (14:34)
--- NOTE | 2020-05-07 15:18 | CASEMGMT ---
PABLITO called Azucena with [facility] and let her know patient may return this evening. She said that is fine and patient does not need a COVID test to return. PABLITO placing a green sheet on patient's chart in the event patient is discharged this evening. Plan: d/c back to [facility]. Suzy BOWERS
[2020-05-07 16:31] LABS: Bedside Glucose 133 mg/dL (70-110)
[2020-05-07 20:26] LABS: Bedside Glucose 213 mg/dL (70-110)
[2020-05-07] MEDS: Insulin Lispro 100 UNIT/ML INSULN.PEN SC (20:29)
--- NOTE | 2020-05-07 23:11 | MRI_ITS ---
We are attempting to reach an attending provider to discuss findings. An addendum with communication details will be sent when the communication is complete. STUDY: MRI BRAIN WITHOUT CONTRAST REASON FOR EXAM: Female, 79 years old. CVA TECHNIQUE: Standardized multiplanar fat and water weighted pulse sequences were obtained. COMPARISON: CT of the brain 05/06/2020 FINDINGS: There is generalized dilatation of the lateral ventricles and third ventricle relative to the cortical sulci with diffuse periventricular white matter hyperintensity which may be consistent with CSF resorption in association with communicating hydrocephalus or NPH.. There is an old lacunar infarct in the head of the right caudate nucleus as well as the left basal ganglia. Chronic pontine ischemic changes. There are 2 tiny foci of gliosis demonstrating restricted diffusion in the right parietal lobe consistent with acute ischemic changes. . Normal thalami. There is no extra-axial fluid accumulation. Normal flow voids within the major intracranial circulation suggesting patency by spin echo criteria. Normal sella turcica, pituitary gland, infundibular stalk, optic chiasm and hypothalamus. Normal tectal plate and pineal gland. Normal midbrain, and medulla. Normal cerebellum. Normal basal cisterns. Normal bilateral temporal bones. Normal bilateral internal auditory canals. Postsurgical changes of the right orbit.. Normal visualized paranasal sinuses. Normal calvarium and skull base. Normal visualized soft tissue structures. Normal visualized upper cervical spine. 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 Electronically Signed: Idris Jimenez MD at 16:34 EDT , Service support ,
--- NOTE | 2020-05-07 23:11 | MRI_ITS ---
STUDY: MRA NECK WITHOUT CONTRAST REASON FOR EXAM: Female, 79 years old. cva TECHNIQUE: Source images were obtained, MIPs were performed. The study was performed unenhanced. COMPARISON: None. FINDINGS: RIGHT CAROTID ARTERIES: Normal right common carotid artery (CCA). Normal right common carotid bulb. Normal origin of the right internal carotid (ICA) artery without a hemodynamically significant stenosis. Normal visualized cervical portion of the right internal carotid artery. Normal origin of the right external carotid artery (ECA). LEFT CAROTID ARTERIES: Normal left common carotid artery (CCA). Normal left common carotid bulb. Normal origin of the left internal carotid (ICA) artery without a hemodynamically significant stenosis. Normal visualized cervical portion of the left internal carotid artery. Normal origin of the left external carotid artery (ECA). VERTEBRAL ARTERIES: Normal antegrade flow within the bilateral vertebral artery without a hemodynamically significant stenosis. MRI/MRA Neck without Contrast IMPRESSION: Normal bilateral cervical carotid and vertebral arteries. Electronically Signed: Idris Jimenez MD at 16:39 EDT , Service support ,
--- NOTE | 2020-05-07 23:11 | MRI_ITS ---
STUDY: MRA OF THE HEAD WITHOUT CONTRAST REASON FOR EXAM: Female, 79 years old. CVA TECHNIQUE: 3-D [id number] (TOF) imaging was performed with MIPs. The study was performed unenhanced. COMPARISON: None. FINDINGS: Normal bilateral petrous carotid arteries. Multifocal plaquing of the right cavernous carotid artery with a normal supraclinoid bifurcation. Multifocal plaquing of the left cavernous carotid artery with a normal supraclinoid bifurcation. Normal right A1 segments of the anterior cerebral artery. Normal left A1 segments of the anterior cerebral artery. Normal intact anterior communicating artery (ACOM). Normal bilateral A2 segments of the anterior cerebral arteries. Normal right M1 and diffusely narrowed M2 segments of the middle cerebral arteries, with a normal M1 bifurcation. Normal left M1 and diffusely narrowed M2 segments of the middle cerebral arteries, with a normal M1 bifurcation. Posterior communicating arteries are not visualized consistent with normal variant). Normal bilateral vertebral arteries. Normal basilar artery with a normal basilar bifurcation. The visualized bilateral superior cerebellar (SCA) arteries are normal. Normal bilateral P1, P2 and visualized P3 segments of the posterior cerebral arteries. There is no demonstrated aneurysm of the [place] of [place]. There is no major vessel occlusion or hemodynamically significant stenosis. There is no demonstrated abnormality of the visualized brain. MRI/MRA Head ONLY without Contrast IMPRESSION: Atherosclerotic disease with most pronounced involvement of the cavernous carotids and the M2 segments of the middle cerebral arteries which may in part be exaggerated by motion artifact. CTA would be useful for further evaluation if clinically warranted Electronically Signed: Idris Jimenez MD at 16:38 EDT , Service support ,
[2020-05-08] VITALS (8 sets, daily range): BP systolic 131–183; BP diastolic 76–94; PULSE 59–75; RESP 17–20; TEMP 36.3–36.9; O2SAT 94–96; BMI 21.0
--- NOTE | 2020-05-08 00:53 | NURSING ---
When attempting to wake pt for vitals and 0005 NIH, pt became very agitated and began yelling at this RN to leave her alone and let her sleep because she was tired and cold. Gave pt warm blankets and obtained vitals. NIH not fully completed d/t pt noncompliance with care. JULISSA Fuller.
--- NOTE | 2020-05-08 04:43 | NURSING ---
Pt did not want to be awaken for 0405 [facility]. Vitals performed while pt continued sleeping. JULISSA Fuller.
[2020-05-08 06:55] LABS: Bedside Glucose 92 mg/dL (70-110)
[2020-05-08] MEDS: Aspirin 81 MG TAB.CHEW PO (09:03)
[2020-05-08] MEDS: Venlafaxine XR 37.5 MG Capsule PO (09:03)
[2020-05-08] MEDS: Donepezil HCl 10 MG Tablet PO (09:03)
[2020-05-08] MEDS: Carvedilol 6.25 MG Tablet PO (09:03)
[2020-05-08] MEDS: Ferrous Sulfate 325 MG Tablet PO (09:03)
[2020-05-08] MEDS: amLODIPine 10 MG Tablet PO (09:04)
[2020-05-08 11:10] LABS: Bedside Glucose 158 mg/dL (70-110)
[2020-05-08] MEDS: Insulin Lispro 100 UNIT/ML INSULN.PEN SC (11:14)
--- NOTE | 2020-05-08 11:29 | TELEMED_ITS ---
[facility] Telemed has confirmed receipt of a request for visit. This document confirms receipt of the order initiating the consult. To find the results of the consultation, please view the patient's reports for the scanned Telemed Consult.
--- NOTE | 2020-05-08 11:30 | PN_ITS ---
Patient Problems: Active and Suspected Problems (Last Reviewed 05/06/20 @ 22:43 by Katy Rojas, REGISTERED NURSE RENAL-C) Lacunar infarct, acute (Acute) Fall (Acute) Subjective: Feels good denies complaints. Vomited after MRI yesterday. Decline echo yesterday. Vitals/I&O's: Vital Signs Temp Pulse Resp BP Pulse Ox 36.9 C 75 17 152/88 H 96 05/08/20 08:50 05/08/20 08:50 05/08/20 08:50 05/08/20 08:50 05/08/20 08:50 Oxygen Flow Rate (L/min) 94 Oxygen Delivery Method Room Air Weight: 55.6 kg Body Mass Index (BMI) 21.0 Intake and Output for Last 24 Hours 05/06/20 05/07/20 05/08/20 23:59 23:59 23:59 Intake Total 1013.33 / 1043.33 630 / 690 60 / 60 Output Total 400 / 550 150 / 150 Balance 1013.33 / 1043.33 230 / 140 -90 / -90 General: Alert, No apparent distress, - - up in bed eating breakfast. HEENT: Atraumatic, Normocephalic Oral: Moist Mucosa, No Gingival or Mucosal Lesions/ Ulcerations Neck: No Nodes, Thyroid Normal Size and Texture Lungs: Clear to auscultation, Normal air movement, No rhonchi, No wheeze, No rales Cardiovascular: Regular rate, Regular Rhythm, Normal S1, Normal S2, No murmurs Abdomen: Bowel Sounds Present, Soft, Non Tender, Non-Distended Extremities: No edema, No Calf Tenderness Skin: No rashes, No breakdown Musculoskeletal: No Tenderness to Palpation of Joints or Extremities, No Muscle Wasting Neurological: - - moves all extemities spontanesouly Psych/Mental Status: Normal Affect, Appropriate Laboratory Results 05/07/20 16:28: POC Glucose 133 H 05/07/20 20:20: POC Glucose 213 H 05/08/20 06:49: POC Glucose 92 05/08/20 11:02: POC Glucose 158 H Current Medications Acetaminophen (Acetaminophen 325 Mg Tablet) 650 mg PO Q6H PRN PRN PRN Reason: Pain Score 1-10/Temp > 100.7 F Amlodipine Besylate (Amlodipine 10 Mg Tablet) 10 mg PO DAILY YEE Last Admin: 05/08/20 09:04 Dose: 10 mg Documented by: Aspirin (Aspirin 81 Mg Tab.Chew) 81 mg PO DAILY@0800 [facility] Last Admin: 05/08/20 09:03 Dose: 81 mg Documented by: Atorvastatin Calcium (Atorvastatin Calcium 40 Mg Tablet) 40 mg PO QHS [facility] Last Admin: 05/07/20 22:30 Dose: Not Given Documented by: Carvedilol (Carvedilol 6.25 Mg Tablet) 6.25 mg PO BID [facility] Last Admin: 05/08/20 09:03 Dose: 6.25 mg Documented by: Donepezil HCl (Donepezil Hcl 10 Mg Tablet) 10 mg PO DAILY [facility] Last Admin: 05/08/20 09:03 Dose: 10 mg Documented by: Ferrous Sulfate (Ferrous Sulfate 325 Mg Tablet) 325 mg PO DAILYCM [facility] Last Admin: 05/08/20 09:03 Dose: 325 mg Documented by: Hydralazine HCl (Hydralazine 20 Mg/Ml Vial) 5 mg IV Q30M PRN PRN Reason: to maintain BP goals Insulin Human Lispro (Insulin Lispro 100 Unit/Ml Insuln.Pen) 0 unit SC [facility]; Protocol Last Admin: 05/08/20 11:14 Dose: 1 u Documented by: Labetalol HCl (Labetalol (Prefilled) 20 Mg/4 Ml) 10 - 20 mg IV Q10M PRN PRN PRN Reason: to Maintain BP Goals Melatonin (Melatonin 3 Mg Tablet) 3 mg PO QHS PRN PRN PRN Reason: INSOMNIA Nitroglycerin (Nitroglycerin (Inpatient Use) 0.4 Mg Tab.Subl) 0.4 mg SL Q5M PRN PRN Reason: CARDIAC/CHEST PAIN Ondansetron HCl (Ondansetron 4 Mg/2 Ml Vial) 4 mg IV Q8H PRN PRN PRN Reason: NAUSEA/VOMITING Last Admin: 05/07/20 14:34 Dose: 4 mg Documented by: Sodium Chloride (0.9% Saline Lock 10 Ml Syringe) 10 - 40 ml IV UD PRN PRN Reason: SALINE FLUSH Venlafaxine HCl (Venlafaxine Xr 37.5 Mg Capsule) 37.5 mg PO DAILY [facility] Last Admin: 05/08/20 09:03 Dose: 37.5 mg Documented by: STROKE Vital Signs/Narrative: Vital Signs Temp Pulse Resp BP Pulse Ox 05/08/20 08:50 36.9 C 75 17 152/88 H 96 Medical Necessity - Tobacco Use Smoking Status: Unknown if ever smoked Assessment/Plan All Active Problems (Last Reviewed 05/06/20 @ 22:43 by Katy Rojas, REGISTERED NURSE RENAL-C) Lacunar infarct, acute (Acute) Fall (Acute) Breast mass, right (Acute) History of lumpectomy of right breast (Acute) History of falling (Acute) Altered mental status, unspecified (Acute) Disorientation, unspecified (Acute) Acute cystitis with hematuria (Acute) Acute kidney failure (Acute) Major depressive disorder (Acute) Protein calorie malnutrition (Acute) Hx of breast cancer (Acute) 1. acute CVA change in mental status presenting complaint, today is more alert and interactive MRI showed tiny deep white matter acute ischemic changes in the right frontal/parietal region on ASA and atorvastatin consult [facility] teleneurology attempt echo 1 more time, but has already declined several times this admission. 2. fall PT OT eval and treat plan to return to [facility] 3. HTN emergency BP 232/99, improved, now 152/88 on amlodipine 10, carveilol 6.25 4. Dementia complicates care on donepezil 5. VTE prophylaxis: SCDs 6. Disposition: pending neurology eval. Inpatient E&M: 67205 Subs Hosp L2
[2020-05-08] MEDS: Ondansetron 4 MG/2 ML Vial IV (11:42)
[2020-05-08] MEDS: 0.9% Saline Lock 10 ML Syringe IV (11:43)
--- NOTE | 2020-05-08 15:03 | TREXTCAR_ITS ---
- Diet 05/07/20 11:52 Diet: Carbohydrate Controlled Food consistency:: Regular Liquid Consistency:: Regular/Thin Dietary Modifications:: No Added Salt Type of Dietary Supplement:: Glucerna Shake Diet Comments: 120ml glucerna shake TID w/ meals - Routine Orders/Code Status Routine Lab Work: CBC - every Monday and PRN, BMP - every Monday and PRN Code Status: DNRCC - Wound(s) right elbow Wound Type: Skin Tear - Therapies Physical Therapy: Eval and Treat Occupational Therapy: Eval and Treat - Allergies/Procedures Done in Hospital Allergies/Adverse Reactions: Allergies loratadine [From Claritin] Allergy (Unknown, Verified 05/01/18 09:27) Unknown - Type of Care/Length of Stay Estimated LOS: Convalescent Care Less Than 30 days Type of Care Needed: Skilled Rehab Potential: Fair Prognosis: Fair - Additional Orders/Day of Discharge Day of Discharge: 05/08/20 - Dietary and Speech Recommendations Dietitian Recommendations/Changes: Will change diet to carbohydrate- controlled/no added salt. Will offer 120 ml glucerna shake TID w/ meals. Speech Linguistic Eval Summary: Informal assessment - oriented to full name, and place (hospital) only. States age to be 31, unable to select correct decade of age (70s vs 80s) from choice of 2. Believes she is in [place] (where she is originially from per son). Repeated back 2/3 words immediately after hearing, increased to 3/3 w/ repetition. Only able to recall 1/3 after a brief delay but increased to 3/3 w/ category cueing. Asnwered yes/no questions re: self w/ 3/3 accuracy; orientation to environment (after being reoriented by this CAR AND YARD SUPERVISOR) 1/3; simple concepts 3/3; complex/comparison concepts 0/3. Able to name 4 words belonging to a concrete category w/in a 60 second time constraint; 0 accurate items named belonging to an abstract category w/in 60 seconds, perseverating on horse despite max cues repetition to desired category (words begining w/ M), able to repeat back category and state that horse did not begin w/ M but unable to accurately name any items. Immesiate recall of story length information - perseverating on horse from divergent naming task, stating the horse lost a jackie ring - repeated back 08/23 details from story, answered yes/no ?s re: same w/ 04/11 accuracy. Able to execute 1 and 2 step commands accurately, unable to retain and recall 3 steps for execution. Per RN discussion w/ son while this CAR AND YARD SUPERVISOR was evaluating, the patient has had significant confusion/cognitive decline over the past year since family has been unable to visit d/t COVID restrictions in SNF. Will follow - await MRI results. Unclear if current presentation is a deviation from baseline function w /no family present to confirm/deny. - Follow Up Care Primary Care Physician: Kt Michelle MD [Primary Care Provider] - Within 1 Week Please Follow Up With: Gus Garcia GLUING PRESSMAN, GLUING PRESSMAN-C When: 05/26/2020, already scheduled Please Follow Up With: Giorgio Naidu MD - neurology When: 1-2 months
--- NOTE | 2020-05-08 15:06 | DS.PCM_ITS ---
Discharge Date and Diagnosis - Problem List Patient Problems: Active and Suspected Problems (Last Reviewed 05/06/20 @ 22:43 by Katy Rojas NP-C) Lacunar infarct, acute (Acute) Fall (Acute) Date of Admission: 05/06/20 Date of Discharge: 05/08/20 - Primary Discharge Diagnosis Acute Problems: Active Problems (Last Reviewed 05/06/20 @ 22:43 by Katy Rojas NP-C) 1. acute CVA change in mental status presenting complaint, today is more alert and interactive MRI showed tiny deep white matter acute ischemic changes in the right frontal/parietal region on ASA and atorvastatin discussed with SOC teleneurology echo unremarkable follow up with neurology as outpt. 2. fall PT OT eval and treat plan to return to [facility] 3. HTN emergency BP 232/99, improved, now 152/88 on amlodipine 10, carveilol 6.25 DW neurology, he was concerned that increased confusion may be related to HTN encephalopathy 4. Dementia complicates care on donepezil 5. possible [facility] outpt neurology evaluation - Secondary Discharge Diagnosis Chronic Problems: Chronic Problems (Last Reviewed 05/06/20 @ 22:43 by Katy Rojas, SETH-C) Hypertension (Chronic) Vitamin D deficiency (Chronic) Diabetes mellitus type 2 in nonobese (Chronic) Depression (Chronic) Dementia (Chronic) Hospital Course and Treatment Summary of Care Provided: The patient is a 79 year old F presents with fall. Patient had fallen and hit her head she was noted to be confused. Pressure was extremely elevated at 244/85. Patient was temporarily on a Cardene drip and then that was the discontinued patient was started on pills and blood pressure is steadily improved. Patient had a CAT scan that showed a vague hypodense area in the right lenticular nucleus. Patient had an MRI that did not show any area that corresponded with that lesion but did show right frontal parietal stroke. Neurology was consulted and did not identify on MRI imaging the area of concern on the CAT scan but did confirm this parietal stroke. Recommend aspirin as well as atorvastatin for her. Patient did have a 2D echocardiogram that was unremarkable for embolic source of clot. Will be discharged back to [facility] in stable condition. Patient also does have hydrocephalus. Advised patient follow-up with neurology as outpatient for further evaluation for normal pressure hydrocephalus. [] Patient Problems: Active and Suspected Problems (Last Reviewed 05/06/20 @ 22:43 by Katy Rojas, CONTACT FINGER ASSEMBLER-C) Lacunar infarct, acute (Acute) Fall (Acute) - Physical Exam Vitals/I&O's: Vital Signs Temp Pulse Resp BP Pulse Ox 36.6 C 71 17 162/94 H 96 05/08/20 12:35 05/08/20 12:35 05/08/20 12:35 05/08/20 12:35 05/08/20 12:35 Oxygen Flow Rate (L/min) 94 Oxygen Delivery Method Room Air Weight: 55.6 kg Body Mass Index (BMI) 21.0 Intake and Output for Last 24 Hours 05/06/20 05/07/20 05/08/20 23:59 23:59 23:59 Intake Total 1013.33 / 1043.33 630 / 690 300 / 300 Output Total 400 / 550 150 / 150 Balance 1013.33 / 1043.33 230 / 140 150 / 150 Laboratory Results 05/07/20 16:28: POC Glucose 133 H 05/07/20 20:20: POC Glucose 213 H 05/08/20 06:49: POC Glucose 92 05/08/20 11:02: POC Glucose 158 H Current Medications Acetaminophen (Acetaminophen 325 Mg Tablet) 650 mg PO Q6H PRN PRN PRN Reason: Pain Score 1-10/Temp > 100.7 F Amlodipine Besylate (Amlodipine 10 Mg Tablet) 10 mg PO DAILY [facility] Last Admin: 05/08/20 09:04 Dose: 10 mg Documented by: Aspirin (Aspirin 81 Mg Tab.Chew) 81 mg PO DAILY@0800 [facility] Last Admin: 05/08/20 09:03 Dose: 81 mg Documented by: Atorvastatin Calcium (Atorvastatin Calcium 40 Mg Tablet) 40 mg PO QHS [facility] Last Admin: 05/07/20 22:30 Dose: Not Given Documented by: Carvedilol (Carvedilol 6.25 Mg Tablet) 6.25 mg PO BID [facility] Last Admin: 05/08/20 09:03 Dose: 6.25 mg Documented by: Donepezil HCl (Donepezil Hcl 10 Mg Tablet) 10 mg PO DAILY [facility] Last Admin: 05/08/20 09:03 Dose: 10 mg Documented by: Ferrous Sulfate (Ferrous Sulfate 325 Mg Tablet) [facility] Last Admin: 05/08/20 09:03 Dose: 325 mg Documented by: Hydralazine HCl (Hydralazine 20 Mg/Ml Vial) 5 mg IV Q30M PRN PRN Reason: to maintain BP goals Insulin Human Lispro (Insulin Lispro 100 Unit/Ml Insuln.Pen) 0 unit SC [facility]; Protocol Last Admin: 05/08/20 11:14 Dose: 1 u Documented by: Labetalol HCl (Labetalol (Prefilled) 20 Mg/4 Ml) 10 - 20 mg IV Q10M PRN PRN PRN Reason: to Maintain BP Goals Melatonin (Melatonin 3 Mg Tablet) 3 mg PO QHS PRN PRN PRN Reason: INSOMNIA Nitroglycerin (Nitroglycerin (Inpatient Use) 0.4 Mg Tab.Subl) 0.4 mg SL Q5M PRN PRN Reason: CARDIAC/CHEST PAIN Ondansetron HCl (Ondansetron 4 Mg/2 Ml Vial) 4 mg IV Q8H PRN PRN PRN Reason: NAUSEA/VOMITING Last Admin: 05/08/20 11:42 Dose: 4 mg Documented by: Sodium Chloride (0.9% Saline Lock 10 Ml Syringe) 10 - 40 ml IV UD PRN PRN Reason: SALINE FLUSH Last Admin: 05/08/20 11:43 Dose: 10 ml Documented by: Venlafaxine HCl (Venlafaxine Xr 37.5 Mg Capsule) 37.5 mg PO DAILY [facility] Last Admin: 05/08/20 09:03 Dose: 37.5 mg Documented by: Discharge Diet: Renal Diet Discharge Activity: Return to Normal Activity Home Medications: Medications to take at Discharge acetaminophen 325 mg capsule 650 mg PO Q4H PRN 04/17/18 amlodipine 10 mg tablet 10 mg PO DAILY 04/17/18 bisacodyl 10 mg rectal suppository 10 mg RC DAILY PRN 04/17/18 dextrose 40 % oral gel 15 g PO Q15M PRN 04/17/18 donepezil 10 mg tablet 5 mg PO DAILY 04/17/18 guaifenesin 100 mg/5 mL oral liquid 200 mg PO Q4H PRN 04/17/18 ondansetron 4 mg disintegrating tablet 4 mg PO BID-TID PRN 04/17/18 venlafaxine 37.5 mg capsule,extended release 24 hr 37.5 mg PO DAILY 04/17/18 Carvedilol 6.25 mg PO BID 05/06/20 Cholecalciferol (Vitamin D3) [Vitamin D3] 2 tablet PO DAILY 05/06/20 Ferrous Sulfate 325 mg PO DAILY 05/06/20 Melatonin 5 mg PO QHS 05/06/20 Sitagliptin Phosphate [Januvia] 25 mg PO DAILY 05/06/20 Mag Hydrox/Aluminum Hyd/Simeth [Alum-Mag Hydroxide-Simeth Susp] 30 ml PO Q4H 05/07/20 Aspirin [Aspirin, Baby] 81 mg PO DAILY@0800 tab.chew 05/08/20 Atorvastatin Calcium [Lipitor] 40 mg PO QHS tablet 05/08/20 Insulin Lispro [Humalog KwikPen] See Protocol [facility] insuln.pen 05/08/20 Primary Care Physician: Kt Michelle MD [Primary Care Provider] - Within 1 Week Please Follow Up With: Gus Garcia CONTACT FINGER ASSEMBLER, CONTACT FINGER ASSEMBLER-C When: 05/26/2020, already scheduled Please Follow Up With: Giorgio Naidu MD - neurology When: 1-2 months Disposition: [facility] facility Minutes spent on discharge:: 32 Patient Condition:: Fair Medical Necessity - Tobacco Use Smoking Status: Unknown if ever smoked Meaningful Use Info Meaningful Use Diagnoses (Choose all that apply): Ischemic CVA - CVA Therapy Assessed for PT,OT and/or ST?: Yes - Ischemic Stroke Antithrombotic order at d/c?: Yes Dx of Atrial fib/flutter?: No Statins at discharge?: Yes Primary Dx Acute Ischemic CVA?: Yes IV tPA ordered during stay?: No Reason IV t-PA not ordered: Treatment not Indicated Inpatient E&M: 86770 Disch Hosp
--- NOTE | 2020-05-08 15:19 | PHA.DC.MR ---
Pharmacy Service has performed discharge medication reconciliation for this patient. The patient's discharge medication list was reviewed for discrepancies and discrepancies were resolved. Home Medications acetaminophen 325 mg capsule 650 mg PO Q4H PRN 04/17/18 amlodipine 10 mg tablet 10 mg PO DAILY 04/17/18 bisacodyl 10 mg rectal suppository 10 mg RC DAILY PRN 04/17/18 dextrose 40 % oral gel 15 g PO Q15M PRN 04/17/18 donepezil 10 mg tablet 5 mg PO DAILY 04/17/18 guaifenesin 100 mg/5 mL oral liquid 200 mg PO Q4H PRN 04/17/18 ondansetron 4 mg disintegrating tablet 4 mg PO BID-TID PRN 04/17/18 venlafaxine 37.5 mg capsule,extended release 24 hr 37.5 mg PO DAILY 04/17/18 Carvedilol 6.25 mg PO BID 05/06/20 Cholecalciferol (Vitamin D3) [Vitamin D3] 2 tablet PO DAILY 05/06/20 Ferrous Sulfate 325 mg PO DAILY 05/06/20 Melatonin 5 mg PO QHS 05/06/20 Sitagliptin Phosphate [Januvia] 25 mg PO DAILY 05/06/20 Mag Hydrox/Aluminum Hyd/Simeth [Alum-Mag Hydroxide-Simeth Susp] 30 ml PO Q4H 05/07/20 Aspirin [Aspirin, Baby] 81 mg PO DAILY@0800 tab.chew 05/08/20 Atorvastatin Calcium [Lipitor] 40 mg PO QHS tablet 05/08/20 Insulin Lispro [Humalog KwikPen] See Protocol [facility] insuln.pen 05/08/20
--- NOTE | 2020-05-08 15:24 | CASEMGMT ---
Social Work Pt is ready for discharge today and will be returning to [facility]. Orders faxed. Transportation set up with [facility] for 4:30 car pick up driver via stretcher. Pt notified of d/c time and admission coordinator at [facility] notified. Nursing updated. KEIRA Morales
[2020-05-08 16:26] LABS: Bedside Glucose 172 mg/dL (70-110)
--- NOTE | 2020-05-08 16:30 | NURSING ---
Report called to [facility] nurse Walden who denies any questions.
[2020-05-10 07:36] LABS: Vitamin D 1,25-Dihydroxy 36.3 pg/mL (19.9-79.3)
== END 2020-05-08 17:37 | disposition skilled nursing facility (03) | DRG 65 ==
LOC: ED 22:17 → PCU 23:06
PROVIDERS: Nurse Practitioner Family; Admitting Provider Hospitalist; Emergency Provider Emergency Medicine; PCP Family Medicine
DX: I63.81 Other cerebral infarction due to occlusion or stenosis of small artery (principal); I16.1 Hypertensive emergency; G91.2 (Idiopathic) normal pressure hydrocephalus; I10 Essential (primary) hypertension; E55.9 Vitamin D deficiency, unspecified; F32.9 Major depressive disorder, single episode, unspecified; F03.90 Unspecified dementia, unspecified severity, without behavioral disturbance, psychotic disturbance, mood disturbance, and anxiety; E11.9 Type 2 diabetes mellitus without complications; W19.XXXA Unspecified fall, initial encounter; Z85.3 Personal history of malignant neoplasm of breast; Z91.81 History of falling; Z66 Do not resuscitate; Z80.3 Family history of malignant neoplasm of breast; Z82.49 Family history of ischemic heart disease and other diseases of the circulatory system; Z83.3 Family history of diabetes mellitus
CPT/HCPCS: 70450; 70544; 70547; 70551; 80053; 80061; 81001; 82652; 82962; 84484; 85025; 92523; 92610; 93005; 93306; 94762; 97110; 97161; 97166; 97530; 97535; 97802; 99285; J7050; A4216; J2405

== ENCOUNTER 2020-05-08 19:15 | Emergency (ER) | payer MEDICARE, OTHER, MEDICAID, SELFPAY ==
[2020-05-08 16:32] VITALS: BMI 21.0
[2020-05-08 19:18] VITALS: BP 228/91; PULSE 73; RESP 18; TEMP 36.4; O2SAT 97; BMI 21.8
--- NOTE | 2020-05-08 19:30 | EKG12_ITS ---
Test Reason : DYSRHYTHMIA Blood Pressure : / mmHG Vent. Rate : 064 BPM Atrial Rate : 064 BPM P-R Int : 182 ms QRS Dur : 122 ms QT Int : 446 ms P-R-T Axes : 039 105 052 degrees QTc Int : 460 ms Normal sinus rhythm Right bundle branch block Inferior infarct , age undetermined Abnormal ECG Confirmed by TAE DARDEN, TARSHA ([id number]), acquisition editor GONZALEZ BURNETTE ([id number]) on 05/13/2020 7:44:26 AM Referred By: SHERON Confirmed By:TARSHA STRONG MD
[2020-05-08] MEDS: Ondansetron 4 MG/2 ML Vial IV (20:01)
[2020-05-08] MEDS: hydrALAZINE 20 MG/ML Vial 5 MG IV (20:02)
[2020-05-08 20:03] VITALS: BP 194/83
[2020-05-08] MEDS: 0.9% Normal Saline 1,000 ML 150 ML IV (20:03)
[2020-05-08 20:17] LABS: Absolute Lymphocyte Count 1.27 X10^3/uL (0.83-4.51); Absolute Neutrophil Count 5.9 X10^3/uL (2.0-7.7); Basophil# 0.04 X10^3/uL; Basophil% 0.5 % (0-1); Eosinophil# 0.12 X10^3/uL; Eosinophils% 1.5 % (0-5); Hematocrit 41.9 % (37-47); Hemoglobin 14.6 g/dL (12.0-15.0); Lymphocyte # 1.27 X10^3/ul (4.0); Lymphocyte % 15.6 % (19-41); Mean Corp Hgb Conc 34.8 g/dL (32-36); Mean Corpuscular Hgb 32.1 pg (27.0-32.0); Mean Corpuscular Volume 92.1 fL (81-99); Mean Platelet Vol. 10.1 fl (6.2-12.0); Monocyte# 0.77 X10^3/uL; Monocyte% 9.4 % (0-10); NRBC Flagged by Analyzer 0 % (0-5); Neutrophil # 5.92 X10^3/uL (2.7-7.7); Neutrophil % 72.6 % (47-70); Platelet Count 256 K/mm3 (150-450); RBC Distribution Width CV 12.3 % (11.6-14.6); RBC Distribution Width SD 41.7 fl (35.1-43.9); Red Blood Count 4.55 M/mm3 (4.2-5.4); White Blood Count 8.2 K/mm3 (4.4-11.0)
[2020-05-08 20:34] LABS: Bacteria 0 SEEN /hpf (None Seen); Mucous, Urine 0 SEEN /hpf (<or=2+); White Blood Cells 0 SEEN /hpf (0-5)
[2020-05-08 20:40] LABS: Color, Urine Yellow (Yellow); Glucose, Dipstick 100 mg/dl (Normal); Ketone-Dipstick Negative (Negative); Leukocyte Esterase-Dipstick Negative /ul (Negative); Nitrite-Dipstick Negative (Negative); Occult Blood-Urine 25 /ul (Negative); Protein-Dipstick 500 mg/dl (Negative); Urine Bilirubin Dipstick Negative (Negative); Urine Clarity Sl. Cloudy (Clear); Urine Urobilinogen Normal (Normal)
[2020-05-08 20:42] LABS: Anion Gap 6 (5-15); BUN 33 mg/dL (7-18); BUN/Creat Ratio 18.3 RATIO (10-20); Calcium,Total 9.2 mg/dL (8.5-10.1); Chloride 105 mmol/L (98-107); EST Glomerular Filtration Rate 29 mL/min (>60); Est Glom Filt Rate - Afr Amer 35 mL/min (>60); Glucose 153 mg/dL (74-106); Potassium 3.7 mmol/L (3.5-5.1); Sodium Level 139 mmol/L (136-145)
[2020-05-08 20:54] LABS: Amorphous Sediment 2+ URATE; Red Blood Cells-Urine 0-5 SEEN /hpf (0-5); Squamous Epithelial Cells - UA 0-5 SEEN /hpf (5-10)
[2020-05-08 21:07] VITALS: BP 186/86
--- NOTE | 2020-05-08 21:31 | ED.DCSUM_ITS ---
- ER Visit Summary Date of Service: 05/08/20 Chief Complaint: [High blood pressure and vomiting] History of Present Illness: The patient is a 79 F [presents to the emergency department from [facility] via EMS. Patient had just arrived at the intermediate and was there for an hour after being discharged from our hospital today. Patient was admitted to our hospital earlier in the week and diagnosed with stroke and she had hypertensive emergency that was treated. Patient on arrival to the intermediate start complaining of feeling nauseated and vomited several times. At that time she was noted to be quite hypertensive and was referred to the emergency department. On arrival patient denies chest pain or headache or shortness of breath. She denies abdominal pain. She denies urinary symptoms. Patient does have history of diabetes, hypertension, depression, chronic kidney disease, and dementia.] Physical Examination: [HEENT-PERRLA, EOMI. Cranial nerves II through XII grossly intact. TMs clear. Mucous membranes moist. No adenopathy. Cardiovascular-regular rate and rhythm without murmur or ectopy Lungs-clear to auscultation, chest wall stable without crepitus or subcu emphysema Abdomen-normoactive bowel sounds, soft, nontender, no rebound or rigidity, no peritoneal signs. Neuro liqg-spyllh-dfcn and heel dahl testing within normal limits, negative Romberg, negative pronator drift. NIH stroke scale 0. Extremities-intact ?4, normal range of motion, normal pulses, atraumatic] Test Results: [EKG obtained on arrival shows sinus rhythm with a ventricular rate of 64 bpm with a right bundle branch block. CBC with differential showed a white count of 8.2, hemoglobin 14.6, hematocrit 42, placed 256. Chemistries unremarkable. BUN was 33 and creatinine 1.8. Urinalysis normal.] Emergency Department Course and Treatment: [Established on arrival. Patient placed on case monitor. Patient given hydralazine 5 mg IV. Patient's blood pressure repeat shows her to be in the 180s over 80s. On repeat examination patient has A[place]ley no complaints. She did receive 4 mg of Zofran IV as well and her nausea is resolved. Her exam is otherwise unremarkable. I did discuss case with physician insulation batting machine operator Dr. William Ramesh and at this point we will discharge patient back to the intermediate.] Treatment Plan: [Patient will be discharged back to intermediate. They are to continue with her current medications.] Disposition: [Discharged home in stable condition] Impression: [[id number] Nausea-improved] This note was generated with [employer] dictation software. It may contain incorrect words, spelling, and punctuation that were not noted in review of the chart prior to signing ED Disposition - Plan for ED Patient: Referrals: Kt Michelle MD [Primary Care Provider] -
--- NOTE | 2020-05-08 21:34 | ED.DEP ---
ED Disposition - Plan for ED Patient: Instructions: ED Hypertension, Established Referrals: Kt Michelle MD [Primary Care Provider] - 3-5 Days
[2020-05-08 22:22] VITALS: BP 181/86; PULSE 69; RESP 16; O2SAT 97
== END 2020-05-09 00:20 | disposition skilled nursing facility (03) ==
PROVIDERS: Emergency Provider Emergency Medicine; PCP Family Medicine
DX: R11.2 Nausea with vomiting, unspecified (principal); I45.10 Unspecified right bundle-branch block; I12.9 Hypertensive chronic kidney disease with stage 1 through stage 4 chronic kidney disease, or unspecified chronic kidney disease; N18.9 Chronic kidney disease, unspecified; F03.90 Unspecified dementia, unspecified severity, without behavioral disturbance, psychotic disturbance, mood disturbance, and anxiety; E11.22 Type 2 diabetes mellitus with diabetic chronic kidney disease
CPT/HCPCS: 80048; 81001; 84484; 85025; 93005; 99285; J7030; A4216; J2405